=== PATIENT | male | born 1965 | race Caucasian/White ===

== ENCOUNTER 2021-10-10 16:28 | Emergency (ER) | payer OTHER | END 2021-10-10 18:37 | disposition home or self-care (01) | LOC: ER1 16:28 | DX: I31.3 Pericardial effusion (noninflammatory) (principal); M54.2 Cervicalgia; I10 Essential (primary) hypertension; E11.9 Type 2 diabetes mellitus without complications | CPT/HCPCS: 71250; 72125; 99284 ==